=== PATIENT | female | born 1950 | race Caucasian/White ===

== ENCOUNTER 2016-11-15 17:33 | Emergency (ER) | payer MEDICARE, BC ==
[~2016-11-15] VITALS: Ht 167.6 cm; Wt 66.0 kg
[2016-11-15 20:01] VITALS: BP 138/79
[2016-11-15] MEDS ORDERED: HYDROCODONE/ACETAMINOPHEN 5/325MG TABLET PO ONE (20:30)
== END 2016-11-15 22:13 | disposition home or self-care (01) ==
LOC: ER 17:33
DX: S90.31XA Contusion of right foot, initial encounter (principal); S90.01XA Contusion of right ankle, initial encounter; S99.821A Other specified injuries of right foot, initial encounter; W20.8XXA Other cause of strike by thrown, projected or falling object, initial encounter; Y93.01 Activity, walking, marching and hiking; Y99.8 Other external cause status; Y92.481 Parking lot as the place of occurrence of the external cause
CPT/HCPCS: 29515; 73610; 73630; 99284